=== PATIENT | female | born 1965 | race Caucasian/White ===

== ENCOUNTER 2017-04-04 12:55 | Emergency (ER) | payer OTHER ==
[~2017-04-04] VITALS: Ht 182.9 cm; Wt 70.0 kg
[~2017-04-04 12:55] MED LIST: FLAG500T PO
[2017-04-04 13:00] VITALS: BP 130/66; PULSE 72; RESP 20; TEMP 97.5; O2SAT 100
[2017-04-04] MEDS ORDERED: KETOROLAC TROMETHAMINE 60 MG/2 ML (IM) VIAL IM ONE (13:30)
[2017-04-04] MEDS ORDERED: DEXAMETHASONE SOD PHOS 20 MG/5 ML VIAL IM ONE (13:30)
[2017-04-04] MEDS ORDERED: ORPHENADRINE INJ 60 MG/2 ML AMP IM ONE (13:30)
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
[2017-04-04] MEDS ORDERED: ACETAMINOPHEN 500 MG CPLT PO ONE (14:00)
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
[2017-04-04] MEDS ORDERED: IBUP800T23 PO (14:28)
[2017-04-04] MEDS ORDERED: CYCL5TAB PO (14:28)
== END 2017-04-04 14:36 | disposition home or self-care (01) ==
LOC: NEPD 12:55
DX: S16.1XXA Strain of muscle, fascia and tendon at neck level, initial encounter (principal); M62.838 Other muscle spasm; M54.5 Low back pain; R42 Dizziness and giddiness; M79.601 Pain in right arm; V89.2XXA Person injured in unspecified motor-vehicle accident, traffic, initial encounter
CPT/HCPCS: 72040; 99283